=== PATIENT | female | born 1950 | race Caucasian/White ===

== ENCOUNTER 2018-11-04 09:49 | Inpatient (IN) | payer BC | END 2018-11-07 16:00 | disposition home or self-care (01) | LOC: PAS IN 09:49 → ORTHO 4S 16:05 | PROC: 0SRC0JZ Replacement of Right Knee Joint with Synthetic Substitute, Open Approach (ICD-10-PCS; principal; 2018-11-04 11:39) | DX: M17.11 Unilateral primary osteoarthritis, right knee (principal) ==

== ENCOUNTER 2023-08-28 05:34 | Day surgery (SDC) | payer BC ==
[2023-08-23 15:20] LABS: BASOPHILS # (AUTO) 0.1 X10'3 (0-0.2); BASOPHILS % (AUTO) 0.5 % (0-1); BILIRUBIN,URINE NEGATIVE (Neg); CLARITY,URINE CLEAR (Clear); COLOR,URINE YELLOW (Yellow); EOSINOPHILS # (AUTO) 0.3 X10'3 (0-0.9); EOSINOPHILS % (AUTO) 3.4 % (0-6); GLUCOSE, URINE NEGATIVE (Neg); KETONES,URINE NEGATIVE (Neg); LEUKOCYTE ESTERASE ,URINE NEGATIVE (Neg); LYMPHOCYTES # (AUTO) 2.1 X10'3 (1.1-4.8); LYMPHOCYTES % (AUTO) 20.8 % (21-51); MEAN CORPUSCULAR HEMOGLOBIN 32.4 PG (27.0-31.0); MEAN CORPUSCULAR HGB CONC 33.2 g/dL (33.0-36.5); MEAN CORPUSCULAR VOLUME 97.5 FL (78-98); MONOCYTES # (AUTO) 0.9 X10'3 (0-0.9); MONOCYTES % (AUTO) 8.8 % (2-12); NEUTROPHILS # (AUTO) 6.8 X10'3 (1.8-7.7); NEUTROPHILS % (AUTO) 66.5 % (42-75); NITRITES, URINE NEGATIVE (Neg); OCCULT BLOOD,URINE NEGATIVE (Neg); PRE OP HEMATOCRIT 43.5 % (35.0-45.0); PRE OP HEMOGLOBIN 14.4 g/dL (12.0-16.0); PRE OP PLATELET COUNT 227 X10'3 (140-440); PRE OP WHITE BLOOD COUNT 10.2 10'3 (4.8-10.8); PROTEIN,URINE NEGATIVE (Neg); RED BLOOD COUNT 4.46 X10'6 (4.20-5.60); RED CELL DISTRIBUTION WIDTH 13.6 % (11.5-14.5); UROBILINOGEN,URINE 0.2 E.U/dL (0.2-1.0)
[2023-08-23 15:25] LABS: UA COLLECTION TYPE CLN CATCH MIDSTREAM
[2023-08-23 15:37] LABS: ALBUMIN 3.4 G/DL (3.4-5.0); ALKALINE PHOSPHATASE 50 IU/L (46-116); BLOOD UREA NITROGEN 25 MG/DL (7-18); BUN/CREATININE RATIO 33.3 (10.0-20.0); CALCIUM 9.3 MG/DL (8.5-10.1); CHLORIDE 106 MMOL/L (99-107); CREATININE 0.75 MG/DL (0.40-0.90); PRE OP ALT 33 U/L (30-65); PRE OP ANION GAP 6 (8-16); PRE OP AST 23 U/L (10-37); PRE OP BILIRUB, TOTAL 0.3 MG/DL (0.0-1.0); PRE OP GLUCOSE 102 MG/DL (70-104); PRE OP POTASSIUM 4.4 MMOL/L (3.4-5.1); PRE OP SODIUM 142 MMOL/L (135-145); TOTAL CARBON DIOXIDE 29.8 MMOL/L (24-32); TOTAL PROTEIN 6.9 G/DL (6.4-8.2); eGFR 76 ML/MIN
[~2023-08-28] VITALS: Ht 177.8 cm; Wt 100.8 kg
[2023-08-28] VITALS (10 sets, daily range): BP systolic 126–158; BP diastolic 76–98; PULSE 66–85; RESP 8–16; TEMP 97.8; O2SAT 94–99
[~2023-08-28 05:34] MED LIST: CALCIUM CITRATE PO; CHOL400T14 PO; LEVO25TA7 PO; MAGNESIUM GLYCINATE; MELO-102 PO; OMEG1CAP21 PO; SUPER B-COMPLEX
[2023-08-28] MEDS: famotidine 20mg tablet PO ONE (06:06)
[2023-08-28] MEDS: cefazolin 2gm/D5W 100mL 100 ML IV ONE (06:07)
[2023-08-28] MEDS: ringers solution, lacted 1,000 ML IV SCH (06:07)
[2023-08-28] MEDS ORDERED: bacitracin 15gm ointment TP ONE (08:41)
[2023-08-28] MEDS ORDERED: BUPIVAcaine/PF 2.5mg/ml (0.25%) 10ml vial ONE (08:41)
[2023-08-28] MEDS ORDERED: fentaNYL/PF 50MCG/1 ML 2ML syringe ONE (08:51)
[2023-08-28] MEDS ORDERED: propofol inj 20 ML IV ONE (08:52)
[2023-08-28] MEDS ORDERED: midazolam 1 mg/ML 2ml injection ONE (08:52)
[2023-08-28] MEDS ORDERED: ROPIVAcaine 0.5% (5mg/ml) 30ml vial ONE (08:54)
[2023-08-28] MEDS ORDERED: cloNIDine hcl/PF 100mcg/ml inj ONE (09:01)
[2023-08-28] MEDS ORDERED: sevoflurane 250ml liquid IH ONE (09:01)
[2023-08-28] MEDS ORDERED: dexamethasone sod phosphate 4mg/ml inj. ONE (09:39)
[2023-08-28] MEDS ORDERED: morphine 2 MG/ML inj. syringe IV PRN (10:35)
[2023-08-28] MEDS ORDERED: morphine 4 MG/ML inj SYRINge IV PRN (10:35)
[2023-08-28] MEDS ORDERED: ringers solution, lacted 1,000 ML IV SCH (10:35)
[2023-08-28] MEDS ORDERED: proCHLORperazine 10 MG/2 ml inj IV PRN (10:35)
[2023-08-28] MEDS ORDERED: ondansetron/PF 4mg/2ml inj IV PRN (10:35)
[2023-08-28] MEDS ORDERED: meperidine/PF 25mg/ml syringe IV PRN ×3 (10:35)
[2023-08-28] MEDS ORDERED: ondansetron/PF 4mg/2ml inj ONE (11:01)
== END 2023-08-28 12:10 | disposition home or self-care (01) ==
LOC: PAS 05:34
PROVIDERS: ATTEND Podiatrist Foot & Ankle Surgery
DX: M20.41 Other hammer toe(s) (acquired), right foot (principal); M21.621 Bunionette of right foot; G89.18 Other acute postprocedural pain; M85.88 Other specified disorders of bone density and structure, other site; Z79.890 Hormone replacement therapy; Z79.891 Long term (current) use of opiate analgesic; Z79.899 Other long term (current) drug therapy; Z96.651 Presence of right artificial knee joint; Z98.890 Other specified postprocedural states
CPT/HCPCS: 28110; 28270; 28285; 36415; 64445; 73620; 80053; 81003; 82948; 85025; 93005; A6223; C1713; J0690; J0735; J1100; J2250; J2405; J2704; J2795; J3010; J7030; J7120; Z7506; Z7508; Z7512; 76000; A4215; A4618; A6449; A7000; J3490